=== PATIENT | male | born 1985 | race Caucasian/White ===

== ENCOUNTER 2020-10-22 07:59 | Day surgery (SDC) | payer OTHER ==
[~2020-10-22] VITALS: Ht 170.2 cm; Wt 90.7 kg
[2020-10-22 08:30] VITALS: BP 117/64
--- NOTE | 2020-10-22 08:30 | NUR ---
PT AMBULATORY TO ROOM ACCOMPANIED BY [facility] STAFF; VS AND WT OBTAINED; PT ORIENTED TO ROOM AND CALL SYSTEM; WILL CONTINUE TO MONITOR.
[2020-10-22 09:29] LABS: HEMATOCRIT 45.9 % (39.0-50.0); HEMOGLOBIN 14.7 g/dl (14.0-18.0); IMMATURE GRANULOCYTES 0.2 % (0.0-5.0); MEAN CELL VOLUME 81.2 fL CALC (80.0-100.0); NEUT# 6.95 thou/uL (1.82-7.42); RED BLOOD COUNT 5.65 mill/uL (4.70-6.10); RED CELL DISTRI WIDTH 16.1 % (11.5-15.5)
[2020-10-22 11:35] LABS: ALBUMIN 4.5 g/dL (3.2-5.0); BILIRUBIN, TOTAL 0.6 mg/dL (0.0-1.4); TOTAL PROTEIN 7.3 g/dL (6.3-8.2)
[2020-10-22 11:36] LABS: ALBUMIN 4.4 g/dL (3.2-5.0); ALKALINE PHOSPHATASE 46 u/l (38-126); ANION GAP 12 (6-22 (CALC)); BILIRUBIN, TOTAL 0.6 mg/dL (0.0-1.4); BUN 13 mg/dL (9-20); BUN/CREATININE RATIO 16 (12-20 (CALC)); CARBON DIOXIDE 25 mmol/l (22-30); CHLORIDE 103 mmol/l (95-108); CREATININE 0.8 mg/dL (0.7-1.3); GFR > 60 ML/MIN (>=60 (CALC)); GFR FOR AFR.AMER. > 60 ML/MIN (>=60 (CALC)); POTASSIUM 4.4 mmol/l (3.5-5.1); SGOT/AST 52 u/l (17-59); SODIUM 135 mmol/l (137-146); TOTAL PROTEIN 7.3 g/dL (6.3-8.2)
[2020-10-22 11:40] VITALS: BP 110/84
--- NOTE | 2020-10-22 13:19 | NUR ---
PT TO TRAUMA ROOM VIA BED ACCOMPANIED BY STAFF.
[2020-10-22 20:10] VITALS: BP 118/67
--- NOTE | 2020-10-22 20:20 | NUR ---
RECEIVED PATIENT TO THE FLOOR AT 2009 VIA BED WITH O2 2L N/C IN PLACE. PATIENT SEDATED AND AGGITATED. RESPIRATION EVEN. HR REG. IVF WITH K RIDER INFUSING. BED ALARM ACTIVATED. ASSESSMENT COMPLETED AND CHARTED. BED IN LOW POSITION. CALL LIGHT WITHIN REACH.
--- NOTE | 2020-10-23 00:20 | NUR ---
PATIENT AWAKE AND VERY AGGITATED. NEW ORDERS RECEIVED. VALIUM 10 MG IV GIVEN WITH SOME POSITIVE EFFECT. BED IN LOW POSITION. CALL LIGHT WITHIN REACH. BED ALARM ACTIVATED.
--- NOTE | 2020-10-23 02:27 | NUR ---
PATIENT PULLED OUT BOTH VAD'S, CURRENTLY WITH A VAD. JOMAR NATH SAID IT WAS OK TO LEAVE OUT AND TO LET PATIENT REST. PATIENT RESTING IN BED O2 2L N/C IN PLACE. RESPIRATIONS EVEN. BED IN LOW POSITION. CALL LIGHT WITHIN REACH. BED ALARM ACTIVATED.
[2020-10-23 04:00] VITALS: BP 115/59
--- NOTE | 2020-10-23 04:30 | NUR ---
PATIENT IN BED AGGITATED, CRYING, NO VAD ACCESS. 0400 MEDICATIONS GIVEN WITHOUT DIFFICULTY AND WITH POSITIVE EFFFECT. BED IN LOW POSITION. CALL LIGHT WITHIN REACH. BED ALARM ACTIVATED.
[2020-10-23 06:04] LABS: ALBUMIN 4.2 g/dL (3.2-5.0); ALKALINE PHOSPHATASE 47 u/l (38-126); ANION GAP 12 (6-22 (CALC)); BILIRUBIN, TOTAL 0.8 mg/dL (0.0-1.4); BUN 12 mg/dL (9-20); BUN/CREATININE RATIO 15 (12-20 (CALC)); CARBON DIOXIDE 27 mmol/l (22-30); CHLORIDE 100 mmol/l (95-108); CREATININE 0.8 mg/dL (0.7-1.3); GFR > 60 ML/MIN (>=60 (CALC)); GFR FOR AFR.AMER. > 60 ML/MIN (>=60 (CALC)); SGOT/AST 59 u/l (17-59); SODIUM 135 mmol/l (137-146); TOTAL PROTEIN 6.5 g/dL (6.3-8.2)
--- NOTE | 2020-10-23 07:15 | NUR ---
BEDSIDE REPORT RECEIVED, PT ASLEEP. WILL CONTINUE TO MONITOR.
[2020-10-23 08:57] VITALS: BP 151/65
[2020-10-23 11:00] VITALS: BP 137/75
--- NOTE | 2020-10-23 13:45 | NUR ---
PT LYING IN BED AWAKE WATCHING TV, NO COMPLAINTS. AWAITING RIDE FOR D/C.
== END 2020-10-23 14:05 | disposition home or self-care (01) | DRG 897 ==
LOC: ANR 07:59 → MS2 07:59 → ANR 10-23 14:05
PROVIDERS: Nurse Practitioner; ATTEND Anesthesiology
DX: F11.20 Opioid dependence, uncomplicated (principal)
CPT/HCPCS: J2060; J2354